=== PATIENT | male | born 1960 | race Two or more races ===

== ENCOUNTER 2019-05-28 09:30 | Emergency (ER) | payer OTHER ==
[~2019-05-28] VITALS: Ht 175.3 cm; Wt 103.9 kg
[2019-05-28 09:48] VITALS: Ht 175.3 cm; Wt 103.9 kg
[2019-05-28 11:18] VITALS: BP 159/93
== END 2019-05-28 11:18 | disposition home or self-care (01) ==
LOC: ED 09:30
DX: S63.253A Unspecified dislocation of left middle finger, initial encounter (principal); S62.600A Fracture of unspecified phalanx of right index finger, initial encounter for closed fracture; M17.12 Unilateral primary osteoarthritis, left knee; Z98.890 Other specified postprocedural states; W01.0XXA Fall on same level from slipping, tripping and stumbling without subsequent striking against object, initial encounter; Y93.89 Activity, other specified; Y92.89 Other specified places as the place of occurrence of the external cause; Y99.8 Other external cause status

== ENCOUNTER 2019-06-13 20:03 | Emergency (ER) | payer OTHER ==
[~2019-06-13] VITALS: Ht 175.3 cm; Wt 105.2 kg
[2019-06-13 20:07] VITALS: Ht 175.3 cm; Wt 105.2 kg
[2019-06-13 21:59] VITALS: BP 103/82
== END 2019-06-13 21:59 | disposition home or self-care (01) ==
LOC: ED 20:03
DX: S61.412A Laceration without foreign body of left hand, initial encounter (principal); S00.83XA Contusion of other part of head, initial encounter; S09.8XXA Other specified injuries of head, initial encounter; W22.8XXA Striking against or struck by other objects, initial encounter; Y93.89 Activity, other specified; Y92.89 Other specified places as the place of occurrence of the external cause; Y99.8 Other external cause status
CPT/HCPCS: 90715; J2001; Q0092

== ENCOUNTER 2019-06-16 18:28 | Emergency (ER) | payer OTHER ==
[~2019-06-16] VITALS: Ht 175.3 cm; Wt 99.8 kg
[2019-06-16 19:36] VITALS: BP 123/72
== END 2019-06-16 20:29 | disposition home or self-care (01) ==
LOC: ED 18:28
DX: S02.2XXA Fracture of nasal bones, initial encounter for closed fracture (principal); X58.XXXA Exposure to other specified factors, initial encounter; Y93.89 Activity, other specified; Y92.89 Other specified places as the place of occurrence of the external cause; Y99.8 Other external cause status
CPT/HCPCS: A4570